=== PATIENT | male | born 1960 | race Caucasian/White ===

== ENCOUNTER 2022-10-09 09:49 | Inpatient (IN) | payer OTHER, MEDICAID ==
[~2022-10-09] VITALS: Ht 172.7 cm; Wt 65.8 kg
[2022-10-09 10:08] VITALS: BP 110/64
--- NOTE | 2022-10-09 10:17 | NUR ---
PATIENT BIBAM, ALERT AND ORIENTED X 4. PMH SCHIZOPHRENIA, ANEMIA, GERD, GI BLEED. PATIENT IS FROM [facility]. PER MEDIC REPORT PATIENT HAS BEEN HAVING BLOODY STOOLS X 4 MOS AND WAS NOTED TO HAVE WORSENED OVER THE PAST TWO WEEKS. PATIENT REPORTED BRIGHT RED STOOL. NO S/S OF ACUTE DISTRESS NOTED. MD MADE AWARE OF PATIENT STATUS.
[2022-10-09 10:57] LABS: BASOPHILS % (AUTO) 1.7 % (0.0-2.0); EOSINOPHILS % (AUTO) 0.6 % (0.0-4.0); LYMPHOCYTES # (AUTO) 0.6 K/uL (2.0-11.5); LYMPHOCYTES % (AUTO) 20.6 % (20.5-51.1); MEAN CORPUSCULAR HEMOGLOBIN 25 pg (27-31); MEAN CORPUSCULAR HGB CONC 32 g/dL (33-37); MEAN CORPUSCULAR VOLUME 79.2 fL (80-94); MONOCYTES # (AUTO) 0.2 K/uL (0.8-1.0); MONOCYTES % (AUTO) 7.6 % (1.7-9.3); NEUTROPHILS # (AUTO) 2.1 K/uL (1.8-7.7); NEUTROPHILS % (AUTO) 69.5 % (42.2-75.2); PLATELET COUNT (AUTO) 352 K/uL (140-450); RED BLOOD CELL COUNT(AUTO) 2.24 MIL/uL (4.20-6.10); RED CELL DISTRIBUTION WIDTH 15.6 % (11.6-13.7)
[2022-10-09 11:04] LABS: ANION GAP 12.7 (8-16); CARBON DIOXIDE 26.6 mmol/L (21-32); CREATININE 0.7 mg/dL (0.6-1.3); POTASSIUM 4.3 mmol/L (3.5-5.1)
[2022-10-09 11:05] LABS: HEMOGLOBIN 5.7 g/dL (12.0-18.0)
[2022-10-09 11:06] LABS: HEMATOCRIT 17.7 % (36-52)
--- NOTE | 2022-10-09 11:09 | NUR ---
MD KARIMI GIVEN CRITICAL LAB VALUES AT READ BACK. PEND NEW ORDERS
[2022-10-09] MEDS ORDERED: ACETAMINOPHEN 325 MG TAB PO PRN (12:20)
[2022-10-09] MEDS ORDERED: ONDANSETRON 4 MG/2 ML VIAL IVP PRN (12:20)
[2022-10-09] MEDS ORDERED: POTASSIUM CHLORIDE 10 MEQ TABER PO PRN (12:20)
[2022-10-09] MEDS ORDERED: ZOLPIDEM 10 MG TAB PO PRN (12:20)
[2022-10-09] MEDS ORDERED: DOCUSATE SODIUM 100 MG GELCAP PO PRN (12:20)
[2022-10-09] MEDS ORDERED: LORazepam 2 MG/ML VIAL IVP PRN (12:20)
[2022-10-09] MEDS ORDERED: MAG SULF 2000 MG/WATER PREMIX 50 ML IV PRN (12:20)
[2022-10-09] MEDS ORDERED: MORPHINE SULFATE 2 MG/ML SYR IVP PRN (12:20)
[2022-10-09] MEDS ORDERED: BENZ-315 PO (12:23)
[2022-10-09] MEDS ORDERED: OLAN15TA1 PO (12:29)
[2022-10-09] MEDS ORDERED: DOCU-299 PO (12:29)
[2022-10-09] MEDS: NACL 0.9% 1,000 ML IV SCH ×2 (12:35→22:52)
[2022-10-09 13:25] LABS: PROTHROMBIN TIME 9.8 secs (10.8-13.4)
[2022-10-09] MEDS: LACTULOSE 20 GM/30 ML UDC PO SCH ×3 (18:20→22:20)
[2022-10-09] MEDS ORDERED: POLYETHYLENE GLYCOL 17 GM/PKT PO SCH (19:00)
[2022-10-09] MEDS ORDERED: SENNA 8.6 MG TAB PO SCH (19:00)
[2022-10-09] MEDS ORDERED: SENNA 8.6 MG TAB PO PRN (19:00)
[2022-10-09] MEDS ORDERED: POLYETHYLENE GLYCOL 17 GM/PKT PO PRN (19:00)
[2022-10-09] MEDS: PANTOPRAZOLE 40 MG INJ VIAL IVP SCH ×2 (21:09→22:50)
--- NOTE | 2022-10-09 22:40 | NUR ---
PT ARRIVED BACK ON UNIT VIA STRETCHER AND ACCOMPANIED BY NURSE. PT ALERT, RESPONSIVE, AND APPEARS TO BE IN NO PAIN. IV OF NS INFUSING TO LEFT FOREARM AT 100 ML / HR. PT MOVED SELF TO BED FROM [facility] UNDER OWN POWER AND W/O ANY ASSISTANCE.
--- NOTE | 2022-10-09 23:00 | NUR ---
PATIENT PLAN OF CARE REVIEWED AND DISCUSSED WITH ANUSHKA JOSUE.
--- NOTE | 2022-10-09 23:00 | NUR ---
Admitted from ER TO TELEMETRY UNIT , with chief complaint of RECTAL BLEEDING, [birth year]60 y/o ,Male, Cooperative, AWAKE, A/OX4. RESPIRATION EVEN AND UNLABORED. IV OF NS INFUSING AT 100 ML/HR AT THE RIGHT AC G18.ABDOMEN SOFT, NON-TENDER, WITH POSITIVE BOWEL SOUNDS ON ALL QUADRANTS. ABLE TO AMBULATE INDEPENDENTLY.ON BOWEL PREP OF LACTULOSE. HEAD TO TOE ASSESSMENT DONE WITH CARLEE HANEY. SKIN IS INTACT. DENIES PAIN0/10.oriented to calllight, bed, phone,television, bathroom, smoking policy,visiting hours, procedures, ID bracelet on. Belongings list checked.
[2022-10-10] VITALS (8 sets, daily range): BP systolic 79–107; BP diastolic 45–63
--- NOTE | 2022-10-10 | NUR ---
MEDICATED WITH LACTULOSE PER MD ORDER. INSTRUCTED NOT TO FLUSH BM, CALL NURSE TO CHECK IF IT IS ALREADY CLEAR.
[2022-10-10] MEDS: LACTULOSE 20 GM/30 ML UDC PO SCH ×5 (00:46→09:59)
--- NOTE | 2022-10-10 05:00 | NUR ---
HAD LARGE BM CLEAR BUT REDDISH PINK IN COLOR.
--- NOTE | 2022-10-10 06:00 | NUR ---
HAD TWICE BM, THIRD BM IS CLEAR, REDDISH PINK COLOR BUT WITH A SOME AMOUNT OF LIQUID STOOLS.
--- NOTE | 2022-10-10 07:23 | NUR ---
CONDITION REMAIN STABLE. ENDORSED TO AM SHIFT NURSE FOR CONTINUITY OF CARE.
[2022-10-10 07:42] LABS: BASOPHILS % (AUTO) 1.3 % (0.0-2.0); EOSINOPHILS % (AUTO) 1.4 % (0.0-4.0); HEMOGLOBIN 7.4 g/dL (12.0-18.0); LYMPHOCYTES % (AUTO) 32.4 % (20.5-51.1); MEAN CORPUSCULAR HEMOGLOBIN 26 pg (27-31); MEAN CORPUSCULAR HGB CONC 32 g/dL (33-37); MEAN CORPUSCULAR VOLUME 80.2 fL (80-94); MONOCYTES # (AUTO) 0.2 K/uL (0.8-1.0); MONOCYTES % (AUTO) 6.4 % (1.7-9.3); NEUTROPHILS # (AUTO) 1.7 K/uL (1.8-7.7); NEUTROPHILS % (AUTO) 58.5 % (42.2-75.2); PLATELET COUNT (AUTO) 404 K/uL (140-450); RED BLOOD CELL COUNT(AUTO) 2.87 MIL/uL (4.20-6.10); RED CELL DISTRIBUTION WIDTH 15.6 % (11.6-13.7)
[2022-10-10 08:00] LABS: ANION GAP 13.2 (8-16); CARBON DIOXIDE 26.3 mmol/L (21-32); CREATININE 0.9 mg/dL (0.6-1.3); POTASSIUM 3.5 mmol/L (3.5-5.1)
--- NOTE | 2022-10-10 08:58 | NUR ---
PATIENT HAS BEEN SCREENED AND CATEGORIZED HIGH NUTRITION RISK. PATIENT WILL BE SEEN WITHIN 1-2 DAYS OF ADMISSION. / RD RECEIVED REFERRAL REQUEST FOR 2-13 LB WEIGHT LOSS ON 10/10/[address]
[2022-10-10] MEDS ORDERED: PANTOPRAZOLE 40 MG INJ VIAL IVP SCH (09:00)
[2022-10-10] MEDS: PANTOPRAZOLE 40 MG INJ VIAL IVP SCH (10:00)
--- NOTE | 2022-10-10 11:30 | NUR ---
DC PLANNING ASSESSMENT COMPLETE PLEASE REFER TO ASSESSMENT FOR DETAILS PT REPORTS TENTATIVE DC PLAN IS TO RETURN TO [facility], WHEN MEDICALLY STABLE. PER EVELIA MUNIZ, PT'S STEP SON, BRAYAN CASTANEDA, WILL PROVIDE TRANSPORTATION BACK TO [facility] ONCE PT IS MEDICALLY STABLE. Addendum: 10/11/22 at 1503 by Pao CLOUD Amended: Links added. Addendum: 10/14/22 at 1610 by BRIANA TORO CM DC MATILDE CHAVEZ: RECIEVED ORDER TO ARRANGE SNF FOR PT. FAXED TO [facility]. SPOKE WITH YESSICA IN ADMISSIONS PT WAS ACCEPTED AT [address] . PT WILL BE GOING TO ROOM 111-B UNDER THE CARE OF DR. CELESTE. GURNEY TRANSPORTAION WAS MADE WITH YESSICA. PT NURSE DARELL AWARE OF ABOVE INFORMATION.
[2022-10-10] MEDS ORDERED: MIDAZOLAM 2 MG/2 ML VIAL ONE (13:47)
[2022-10-10] MEDS ORDERED: fentaNYL citrate 0.05 MG/ML VIAL ONE ×2 (13:47→13:50)
--- NOTE | 2022-10-10 16:34 | NUR ---
10/10/22 RD INITIAL ASSESSMENT COMPLETED PLEASE REFER TO NUTRITION ASSESSMENT UNDER CARE ACTIVITY FOR ESTIMATED NUTRITIONAL NEEDS. 1. CONTINUE REGULAR DIET TOLERATED 2. MONITOR GI SYMPTOMS, PO INTAKE, AND NUTRITION RELATED LAB VALUES 3. RD TO FOLLOW-UP 7 DAYS, LOW RISK REVIEWED BY CAL SERNA RD
[2022-10-10] MEDS ORDERED: fentaNYL citrate 0.05 MG/ML VIAL IVP ONE (16:50)
[2022-10-10] MEDS ORDERED: MIDAZOLAM 2 MG/2 ML VIAL IVP ONE (16:50)
[2022-10-10] MEDS: HYDROCORTISONE SUPPOSITORY 25 MG SUPP RC SCH (21:00)
[2022-10-10] MEDS: SODIUM FERRIC GLUCONATE 125 MG in NACL 0.9% 100 ML IV SCH (21:19)
--- NOTE | 2022-10-10 21:46 | NUR ---
2100-pt with b/p 81/45hr 51, asymptomatic, denies Headache or dizziness, Dr Edmondson paged await return call
[2022-10-10] MEDS ORDERED: NACL 0.9% 1,000 ML IV ONE (22:25)
--- NOTE | 2022-10-10 22:45 | NUR ---
pt b/p remains low 77/45, rechecked 79/45, hr 49, called Dr. Edmondson, with new order for NS 1 liter bolus , administering at this time. Continue to monitor
--- NOTE | 2022-10-10 23:35 | NUR ---
Ns 1 liter bolus admin as ordered. pt.s b/p increased to 90/52. cont. with plan of care
[2022-10-11] VITALS (7 sets, daily range): BP systolic 84–127; BP diastolic 44–71
[2022-10-11] MEDS: NACL 0.9% 1,000 ML IV SCH ×3 (04:02→22:51)
--- NOTE | 2022-10-11 07:20 | NUR ---
RECEIVED REPORT FROM NIGHTSHIFT NURSE SULMA FOR CONTINUITY OF CARE. PT IN STABLE CONDITION.
[2022-10-11 07:32] LABS: BASOPHILS % (AUTO) 0.5 % (0.0-2.0); EOSINOPHILS # (AUTO) 0.1 K/uL (0-0.4); LYMPHOCYTES # (AUTO) 0.8 K/uL (2.0-11.5); LYMPHOCYTES % (AUTO) 27.3 % (20.5-51.1); MEAN CORPUSCULAR HEMOGLOBIN 26 pg (27-31); MEAN CORPUSCULAR HGB CONC 33 g/dL (33-37); MEAN CORPUSCULAR VOLUME 79.8 fL (80-94); MONOCYTES # (AUTO) 0.2 K/uL (0.8-1.0); MONOCYTES % (AUTO) 7.5 % (1.7-9.3); NEUTROPHILS # (AUTO) 1.7 K/uL (1.8-7.7); NEUTROPHILS % (AUTO) 62.7 % (42.2-75.2); PLATELET COUNT (AUTO) 302 K/uL (140-450); RED BLOOD CELL COUNT(AUTO) 2.33 MIL/uL (4.20-6.10); RED CELL DISTRIBUTION WIDTH 16.3 % (11.6-13.7); WHITE BLOOD COUNT (AUTO) 2.7 K/uL (4.8-10.8)
[2022-10-11 07:33] LABS: ANION GAP 9.4 (8-16); CARBON DIOXIDE 24.7 mmol/L (21-32); CREATININE 0.7 mg/dL (0.6-1.3); POTASSIUM 4.1 mmol/L (3.5-5.1)
--- NOTE | 2022-10-11 07:35 | NUR ---
RECEIVED CALLED FROM LAB, HGB 6.1, HCT 18.6. DR. BALDERAS NOTIFED, NEW ORDER TO TRANSFUSE 1 UNIT PRBCS.
[2022-10-11 07:36] LABS: HEMOGLOBIN 6.1 g/dL (12.0-18.0)
[2022-10-11 07:37] LABS: HEMATOCRIT 18.6 % (36-52)
[2022-10-11] MEDS: HYDROCORTISONE SUPPOSITORY 25 MG SUPP RC SCH ×2 (09:00→20:05)
[2022-10-11] MEDS: SODIUM FERRIC GLUCONATE 125 MG in NACL 0.9% 100 ML IV SCH ×2 (09:25→20:05)
--- NOTE | 2022-10-11 10:45 | NUR ---
RECEIVED CALL FROM BLOOD BANK, FIRST UNIT OF 2 PRBCS IS READY.
--- NOTE | 2022-10-11 10:55 | NUR ---
BEGAN BLOOD TRANSFUSION, PT IN STABLE CONDITION, NO PAIN OR DISTRESS NOTED. PRE-TRANSFUSION V/S FOLLOWS: BP 114/57, TEMP 98.1, HR 54, RR 16 SPO2 100% ON ROOM AIR.
--- NOTE | 2022-10-11 11:10 | NUR ---
NO REACTION NOTED, VITAL SIGNS FOLLOWS: BP 105/58, TEMP 98.4, HR 56, RR 18, SPO2 100% ON ROOM AIR. NO PAIN OR DISTRESS AT THIS TIME.
--- NOTE | 2022-10-11 11:19 | NUR ---
CALLED OR UNIT TO INFORM THEM OF BLOOD TRANSFUSION, AWAITING CALLBACK FROM PRIMARY WASTE MACHINE OFFBEARER.
--- NOTE | 2022-10-11 11:58 | NUR ---
RECEIVED CALL FROM BLOOD BANK, 2ND UNIT PRBC IS READY FOR PICKUP. INITIAL UNIT STILL TRANSFUSING.
[2022-10-11] MEDS ORDERED: BUPIVACAINE-MPF 0.25% 30 ML VIAL INJ ONE (12:00)
[2022-10-11] MEDS ORDERED: LIDOCAINE/EPI MPF 2%1:200000 10 ML VIAL INJ ONE (12:01)
--- NOTE | 2022-10-11 12:58 | NUR ---
RECEIVED CALL FROM OR NURSE BHATT REGARDING PICKING UP PT. PT WAS ALREADY TRANSPORTED TO OR WITH 1ST UNIT PRBC STILL INFUSING. NOTIFIED HIM THAT 2ND UNIT IS READY IN BLOOD BANK, PER MILLER BEJARANO, THEY WILL PICK IT UP IF NEEDED.
[2022-10-11] MEDS ORDERED: SEVOFLURANE 250 ML BTL INH ONE (14:11)
[2022-10-11] MEDS ORDERED: fentaNYL citrate 0.05 MG/ML VIAL ONE (14:12)
[2022-10-11] MEDS ORDERED: HYDROmorphone 1 MG/ML AMP IVP PRN ×2 (14:30→15:45)
[2022-10-11] MEDS ORDERED: HYDROcodone/APAP 5/325 MG 1 TAB TAB PO PRN (14:30)
[2022-10-11] MEDS ORDERED: PROPOFOL 200 MG/20 ML VIAL IV ONE (15:08)
[2022-10-11] MEDS ORDERED: ONDANSETRON 4 MG/2 ML VIAL ONE (15:09)
[2022-10-11] MEDS ORDERED: KETOROLAC 30 MG/ML VIAL ONE (15:09)
[2022-10-11] MEDS ORDERED: SUCCINYLCHOLINE CHLORIDE 200 MG/10 ML VIAL IVP ONE (15:09)
[2022-10-11] MEDS ORDERED: FUROSEMIDE 40 MG/4 ML VIAL IVP ONE (15:09)
[2022-10-11] MEDS ORDERED: METOCLOPRAMIDE 10 MG/2 ML INJ VIAL IVP PRN (15:44)
[2022-10-11] MEDS: LACTATED RINGERS 1,000 ML IV SCH (15:45)
[2022-10-11] MEDS ORDERED: LABETALOL 20 MG/4 ML VIAL IVP PRN (15:45)
[2022-10-11] MEDS ORDERED: hydrALAZINE 20 MG/ML VIAL IVP PRN (15:45)
[2022-10-11] MEDS ORDERED: diphenhydrAMINE 50 MG/ML VIAL IVP PRN (15:45)
--- NOTE | 2022-10-11 16:00 | NUR ---
PT RETURNED FROM OR, GROGGY BUT AWAKE. PER OR NURSE REPORT, DRESSING IN RECTUM IN PLACE WITH MESH UNDERWEAR. PT SPO2 100% ON ROOM AIR, DENIES ANY PAIN OR DISTRESS. INITIATED POSTOP VITAL SIGNS CHECK.
--- NOTE | 2022-10-11 17:24 | NUR ---
ADMINISTERED 2GM MAG RIDER FOR MAGNESIUM LEVEL 1.7. PT DENIES PAIN AT THIS TIME
--- NOTE | 2022-10-11 19:03 | NUR ---
ENDORSED PT TO NIGHTSHIFT NURSE VILLEGAS FOR CONTINUITY OF CARE. PT IN STABLE CONDITION.
--- NOTE | 2022-10-11 19:08 | NUR ---
RECEIVED NEW ORDER FOR MRSA NARES PROTOCOL FOR PT. INITIATED CONTACT ISOLATION PRECAUTIONS.
--- NOTE | 2022-10-11 19:15 | NUR ---
RECEIVED PT IN BED, ASLEEP. NO S/SX OF PAIN NOR DISCOMFORT. NO ACUTE RESPIRATORY DISTRESS. SKIN WARM AND DRY TO TOUCH. SAFETY PRECAUTIONS IN PLACE, CALL LIGHT IN REACH.
[2022-10-11] MEDS: CHLORHEXADINE GLUC 2% CLOTH TP SCH (20:05)
--- NOTE | 2022-10-11 20:05 | NUR ---
CHG BATH DONE. MADE COMFORTABLE IN BED. NO RECTAL BLEED AT TIME. Addendum: 10/12/22 at 0018 by Hawa Lees RN ANUCORT HC NOT GIVEN ORDERED, PT S/P HEMORRHOIDECTOMY.
[2022-10-11] MEDS: MUPIROCIN CA NASAL 2% 1GM TUBE NS SCH (20:06)
--- NOTE | 2022-10-11 20:43 | NUR ---
INFORMED DR. CHRISTINE PT'S BP IS 84/44 ON THE RIGHT ARM AND 67/33 ON THE LEFT ARM, PT ASYMPTOMATIC. NEW ORDER FOR 1L BOLUS GIVEN.
[2022-10-11] MEDS ORDERED: NACL 0.9% 1,000 ML IV SCH (20:45)
--- NOTE | 2022-10-11 21:53 | NUR ---
CURRENT BP AFTER 1L BOLUS OF NS IS 92/48 HR-55.
[2022-10-12] VITALS: BP 116/52
--- NOTE | 2022-10-12 | NUR ---
CURRENT BP IS 86/55 ON THE RIGHT ARM, PT ASYMPTOMATIC, RE-TOOK BP ON THE RIGHT LEG-116/52. INFORMED DR. CHRISTINE, PER MD NO NEW ORDER AT THIS TIME, JUST MONITOR PT. NO BLEEDING NOTED.
[2022-10-12] MEDS: LACTATED RINGERS 1,000 ML IV SCH (00:42)
[2022-10-12 04:00] VITALS: BP 90/50
[2022-10-12] MEDS: NACL 0.9% 1,000 ML IV SCH ×2 (04:00→23:04)
--- NOTE | 2022-10-12 04:00 | NUR ---
VITAL SIGNS TAKEN AND DOCUMENTED. DENIES PAIN.
--- NOTE | 2022-10-12 06:07 | NUR ---
NO RECTAL BLEED NOTED, DRESSING CLEAN DRY AND INTACT. DENIES PAIN. ALL NEEDS ATTENDED TO. SAFETY PRECAUTIONS MAINTAINED DURING THE SHIFT, CALL LIGHT REMAINS WITHIN REACH.
--- NOTE | 2022-10-12 07:05 | NUR ---
RECEIVED REPORT FROM SYSTEM CONFIGURATION SPECIALIST NURSE FOR CONTINUITY OF CARE. PT STABLE AT THIS TIME.
[2022-10-12 07:52] LABS: BASOPHILS % (AUTO) 0.8 % (0.0-2.0); EOSINOPHILS % (AUTO) 0.3 % (0.0-4.0); HEMATOCRIT 23.9 % (36-52); HEMOGLOBIN 7.8 g/dL (12.0-18.0); LYMPHOCYTES # (AUTO) 0.5 K/uL (2.0-11.5); LYMPHOCYTES % (AUTO) 10.8 % (20.5-51.1); MEAN CORPUSCULAR HEMOGLOBIN 26 pg (27-31); MEAN CORPUSCULAR HGB CONC 33 g/dL (33-37); MEAN CORPUSCULAR VOLUME 79.8 fL (80-94); MONOCYTES # (AUTO) 0.3 K/uL (0.8-1.0); MONOCYTES % (AUTO) 6.9 % (1.7-9.3); NEUTROPHILS # (AUTO) 3.9 K/uL (1.8-7.7); NEUTROPHILS % (AUTO) 81.2 % (42.2-75.2); PLATELET COUNT (AUTO) 284 K/uL (140-450); RED BLOOD CELL COUNT(AUTO) 2.99 MIL/uL (4.20-6.10); RED CELL DISTRIBUTION WIDTH 16.1 % (11.6-13.7); WHITE BLOOD COUNT (AUTO) 4.9 K/uL (4.8-10.8)
[2022-10-12 08:00] VITALS: BP 90/60
[2022-10-12 08:41] LABS: ANION GAP 8.3 (8-16); CARBON DIOXIDE 25.5 mmol/L (21-32); CREATININE 0.7 mg/dL (0.6-1.3); POTASSIUM 3.8 mmol/L (3.5-5.1)
[2022-10-12] MEDS: HYDROCORTISONE SUPPOSITORY 25 MG SUPP RC SCH ×2 (09:00→20:07)
[2022-10-12] MEDS: SODIUM FERRIC GLUCONATE 125 MG in NACL 0.9% 100 ML IV SCH ×2 (09:35→20:06)
[2022-10-12 12:00] VITALS: BP 90/50
[2022-10-12 16:00] VITALS: BP 95/52
[2022-10-12 20:00] VITALS: BP 90/50
--- NOTE | 2022-10-12 20:00 | NUR ---
RECEIVED PT IN BED ASLEEP, EASILY AROUSABLE BY VERBAL STIMULI.. NO ACUTE RESPIRATORY DISTRESS. DENIES PAIN AT THIS TIME. SKIN WARM AND DRY TO TOUCH. SAFETY PRECAUTION IN PLACE, CALL LIGHT IN REACH.
--- NOTE | 2022-10-12 20:01 | NUR ---
ENDORSED PT TO BRUSHING MACHINE OPERATOR NURSE FOR CONTINUITY OF CARE. PT IS STABLE
[2022-10-12] MEDS: CHLORHEXADINE GLUC 2% CLOTH TP SCH (20:06)
[2022-10-12] MEDS: MUPIROCIN CA NASAL 2% 1GM TUBE NS SCH (20:06)
[2022-10-13] VITALS: BP 94/61
[2022-10-13 04:00] VITALS: BP 101/60
--- NOTE | 2022-10-13 05:23 | NUR ---
AM CARE RENDERED, NO RECTAL BLEEDING NOTED. MADE COMFORTABLE IN BED. CALL LIGHT PLACED WITHIN REACH.
--- NOTE | 2022-10-13 06:33 | NUR ---
PATIENT IS ASLEEP. NO DISTRESS NOTED. ALL NEEDS ATTENDED TO. SAFETY PRECAUTIONS IN PLACE, CALL LIGHT REMAINS WITHIN REACH.
[2022-10-13 06:54] LABS: BASOPHILS % (AUTO) 0.8 % (0.0-2.0); EOSINOPHILS % (AUTO) 0.2 % (0.0-4.0); HEMATOCRIT 26.6 % (36-52); HEMOGLOBIN 8.5 g/dL (12.0-18.0); LYMPHOCYTES # (AUTO) 0.7 K/uL (2.0-11.5); LYMPHOCYTES % (AUTO) 10.8 % (20.5-51.1); MEAN CORPUSCULAR HEMOGLOBIN 26 pg (27-31); MEAN CORPUSCULAR HGB CONC 32 g/dL (33-37); MEAN CORPUSCULAR VOLUME 81.6 fL (80-94); MONOCYTES # (AUTO) 0.5 K/uL (0.8-1.0); MONOCYTES % (AUTO) 8.2 % (1.7-9.3); NEUTROPHILS # (AUTO) 5.1 K/uL (1.8-7.7); PLATELET COUNT (AUTO) 233 K/uL (140-450); RED BLOOD CELL COUNT(AUTO) 3.26 MIL/uL (4.20-6.10); RED CELL DISTRIBUTION WIDTH 16.8 % (11.6-13.7); WHITE BLOOD COUNT (AUTO) 6.4 K/uL (4.8-10.8)
--- NOTE | 2022-10-13 07:10 | NUR ---
RECEIVED REPORT FROM VACUUM TECHNICIAN NURSE FOR CONTINUITY OF CARE. PT STABLE AT THIS TIME.
[2022-10-13 07:22] LABS: ANION GAP 9.4 (8-16); CARBON DIOXIDE 24.6 mmol/L (21-32); CREATININE 0.7 mg/dL (0.6-1.3)
[2022-10-13 08:00] VITALS: BP 100/70
[2022-10-13] MEDS: HYDROCORTISONE SUPPOSITORY 25 MG SUPP RC SCH ×2 (08:33→20:54)
[2022-10-13] MEDS: SODIUM FERRIC GLUCONATE 125 MG in NACL 0.9% 100 ML IV SCH ×2 (09:12→21:48)
[2022-10-13 12:00] VITALS: BP 111/65
[2022-10-13 16:00] VITALS: BP 93/52
[2022-10-13] MEDS: NACL 0.9% 1,000 ML IV SCH ×2 (17:18→21:54)
--- NOTE | 2022-10-13 19:10 | NUR ---
ENDORSED PT TO COMMUNITY HEALTH AGENT NURSE FOR CONTINUITY OF CARE. PT IS STABLE
--- NOTE | 2022-10-13 19:44 | NUR ---
RECEIVED REPORT FROM DAY SHIFT NURSE FOR CONTINUITY OF CARE. PT IS STABLE IN BED, ON CONTACT PRECAUTIONS. WILL MAKE FREQUENT ROUNDS.
[2022-10-13 20:00] VITALS: BP 89/49
[2022-10-13] MEDS ORDERED: SODIUM FERRIC GLUCONATE 12.5 MG/ML AMP IV ONE (20:31)
[2022-10-13] MEDS: MUPIROCIN CA NASAL 2% 1GM TUBE NS SCH (20:52)
[2022-10-13] MEDS: CHLORHEXADINE GLUC 2% CLOTH TP SCH (20:54)
[2022-10-14] VITALS: BP 96/48
[2022-10-14 04:00] VITALS: BP 82/45
--- NOTE | 2022-10-14 04:00 | NUR ---
PT ASLEEP IN BED. LAST BP = 82/45, PT IS ASYMPTOMATIC, DOCTOR AWARE. NO SIGNS OF DISTRESS NOTED, WILL CONTINUE TO MONITOR.
[2022-10-14 06:54] LABS: ANION GAP 9.4 (8-16); CARBON DIOXIDE 26.3 mmol/L (21-32); CREATININE 0.7 mg/dL (0.6-1.3); POTASSIUM 3.7 mmol/L (3.5-5.1)
[2022-10-14 07:01] LABS: BASOPHILS % (AUTO) 0.6 % (0.0-2.0); EOSINOPHILS % (AUTO) 0.4 % (0.0-4.0); HEMATOCRIT 25.3 % (36-52); HEMOGLOBIN 8.2 g/dL (12.0-18.0); LYMPHOCYTES # (AUTO) 0.7 K/uL (2.0-11.5); LYMPHOCYTES % (AUTO) 11.6 % (20.5-51.1); MEAN CORPUSCULAR HEMOGLOBIN 26 pg (27-31); MEAN CORPUSCULAR HGB CONC 32 g/dL (33-37); MONOCYTES # (AUTO) 0.5 K/uL (0.8-1.0); NEUTROPHILS % (AUTO) 79.4 % (42.2-75.2); PLATELET COUNT (AUTO) 239 K/uL (140-450); RED BLOOD CELL COUNT(AUTO) 3.13 MIL/uL (4.20-6.10); RED CELL DISTRIBUTION WIDTH 16.5 % (11.6-13.7); WHITE BLOOD COUNT (AUTO) 6.3 K/uL (4.8-10.8)
--- NOTE | 2022-10-14 07:15 | NUR ---
RECEIVED PT FROM CARD PUNCHER NURSE FOR CONTINUITY OF CARE. PT IN BED AOX4. ABLE TO VERBALIZE NEEDS. RESPIRATIONS EVEN AND UNLABORED ON RA. IV ON L F/A 18G AND R A/C 20G. RUNNING NS @70. ALANIZ IN PLACE AND DRAINING TO GRAVITY. NO DISTRESS NOTED. CALL LIGHT WITHIN REACH. ALL SAFETY PRECAUTIONS IN PLACE.
[2022-10-14 08:00] VITALS: BP 104/55
[2022-10-14] MEDS: NACL 0.9% 1,000 ML IV SCH (08:55)
[2022-10-14] MEDS: SODIUM FERRIC GLUCONATE 125 MG in NACL 0.9% 100 ML IV SCH (09:00)
[2022-10-14] MEDS: HYDROCORTISONE SUPPOSITORY 25 MG SUPP RC SCH (09:06)
[2022-10-14] MEDS ORDERED: FERR325E14 PO (10:55)
[2022-10-14 14:22] VITALS: BP 127/63
--- NOTE | 2022-10-14 14:24 | NUR ---
TRANSPORTATION ARRIVED TO [facility] ATTEMPTED TO CALL TO GIVE REPORT BUT WAS LEFT ON HOLD. WILL ATTEMPT TO CALL AGAIN.
--- NOTE | 2022-10-14 14:30 | NUR ---
ATTEMPTED TO CALL [facility], LEFT ON HOLD. PRESS BOX CUSTODIAN MARIOLA CALLED FAMILY TO INFORM OF PT TRANSFER TO [facility].
--- NOTE | 2022-10-14 14:53 | NUR ---
ALANIZ REMOVED, ID TAG REMOVED AND BELONGINGS RECONCILED. PT LEFT UNIT VIA GURNEY WITH TRANSPORTERS, NO SIGNS OF PAIN OR DISTRESS NOTED.
--- NOTE | 2022-10-14 14:55 | NUR ---
ATTEMPTED TO CALL [facility] FOR REPORT, PLACED ON HOLD.
--- NOTE | 2022-10-14 15:10 | NUR ---
GAVE BRIEF REPORT TO RN IN [facility], WAS TOLD THE PATIENT ARRIVED TO THE FACILITY AND NEEDED TO FIND A ROOM FOR HIM. GAVE RN CALLBACK NUMBER, AND WAS ASKED IF SHE MAY CAN CONTINUE REPORT AT LATER TIME. NOTIFIED UTILIZATION MANAGEMENT MANAGER LILLIE.
== END 2022-10-14 14:45 | DRG 348 ==
LOC: MED 09:49 → MTU 12:01
PROVIDERS: ADMIT Family Medicine; ATTEND Family Medicine
PROC: 30233N1 Transfusion of Nonautologous Red Blood Cells into Peripheral Vein, Percutaneous Approach (ICD-10-PCS; 2022-10-09)
PROC: 0DJD8ZZ Inspection of Lower Intestinal Tract, Via Natural or Artificial Opening Endoscopic (ICD-10-PCS; 2022-10-10)
PROC: 0DJ08ZZ Inspection of Upper Intestinal Tract, Via Natural or Artificial Opening Endoscopic (ICD-10-PCS; 2022-10-10 14:30)
PROC: 06BY0ZC Excision of Hemorrhoidal Plexus, Open Approach (ICD-10-PCS; principal; 2022-10-11 13:00)
DX: K62.5 Hemorrhage of anus and rectum (principal); Q43.8 Other specified congenital malformations of intestine; F20.9 Schizophrenia, unspecified; E83.51 Hypocalcemia; D50.9 Iron deficiency anemia, unspecified; K64.8 Other hemorrhoids; Z81.8 Family history of other mental and behavioral disorders; Z20.822 Contact with and (suspected) exposure to COVID-19; K21.9 Gastro-esophageal reflux disease without esophagitis; F22 Delusional disorders; E86.0 Dehydration
CPT/HCPCS: 36415; 36430; 80048; 83735; 85025; 85610; 85730; 86886; 86900; 86901; 86920; 87081; 93005; 97110; 97116; 97530; 99291; C9113; J0330; J1885; J1940; J2001; J2250; J2405; J2704; J2916; J3010; J3475; J3490; J7030; P9016